=== PATIENT | female | born 1985 | race Caucasian/White ===

== ENCOUNTER 2022-05-03 13:00 | Day surgery (SDC) | payer OTHER ==
[~2022-05-03] VITALS: Ht 170.2 cm; Wt 68.8 kg
== END 2022-05-03 15:45 | disposition home or self-care (01) ==
LOC: ORSCSDS 13:00
PROVIDERS: Orthopaedic Surgery
PROC: 01N54ZZ Release Median Nerve, Percutaneous Endoscopic Approach (ICD-10-PCS; principal; 2022-05-03 14:30)
PROC: 0LN50ZZ Release Right Lower Arm and Wrist Tendon, Open Approach (ICD-10-PCS; principal; 2022-05-03 14:30)
DX: G56.01 Carpal tunnel syndrome, right upper limb (principal); M65.4 Radial styloid tenosynovitis [de Quervain]; F17.210 Nicotine dependence, cigarettes, uncomplicated; B19.20 Unspecified viral hepatitis C without hepatic coma
CPT/HCPCS: J2250; J3010

== ENCOUNTER 2022-07-05 10:25 | Day surgery (SDC) | payer OTHER ==
[~2022-07-05] VITALS: Ht 170.2 cm; Wt 69.8 kg
[2022-07-05] MEDS ORDERED: SULTRIDS PO (10:57)
--- NOTE | 2022-07-05 11:36 | NUR ---
07/05/22 1136 [facility] 1126: TIMEOUT COMPLETED. VERSED GIVEN BY DR VANG AND INJECTION OF 2% LIDOCAINE WITH EPINEPHRINE 1:100,[address] PEDRO.
--- NOTE | 2022-07-05 12:14 | NUR ---
07/05/22 1214 Aruna [place] [facility].TMG IN ROOM JOSE DE JESUS, MED STUDENT, IN ROOM SCRUBBED IN.
== END 2022-07-05 12:26 | disposition home or self-care (01) ==
LOC: ORSCSDS 10:25
PROVIDERS: Orthopaedic Surgery
PROC: 0LN60ZZ Release Left Lower Arm and Wrist Tendon, Open Approach (ICD-10-PCS; principal; 2022-07-05 11:30)
PROC: 01N54ZZ Release Median Nerve, Percutaneous Endoscopic Approach (ICD-10-PCS; 2022-07-05 11:30)
DX: G56.02 Carpal tunnel syndrome, left upper limb (principal); M65.4 Radial styloid tenosynovitis [de Quervain]; F41.9 Anxiety disorder, unspecified; F32.A Depression, unspecified; F17.210 Nicotine dependence, cigarettes, uncomplicated; Z79.899 Other long term (current) drug therapy
CPT/HCPCS: J2250; J7120

== ENCOUNTER → 2022-10-13 | Outpatient (CLI) | payer OTHER ==
[~2022-10-13] MED LIST: SULTRIDS PO
[2022-10-14 09:29] LABS: Candida species (DNA Probe) Negative (NEGATIVE); G. vaginalis (DNA Probe) Positive (NEGATIVE); T. vaginalis (DNA Probe) Positive (NEGATIVE)
== END | disposition home or self-care (01) ==
LOC: LAB 12:37 → LAB SHORT 12:37
PROVIDERS: Obstetrics & Gynecology
DX: N76.0 Acute vaginitis (principal)
CPT/HCPCS: 87480; 87510; 87660

== ENCOUNTER → 2022-10-30 | Outpatient (CLI) | payer OTHER ==
[2022-10-31 10:36] LABS: Candida species (DNA Probe) Negative (NEGATIVE); G. vaginalis (DNA Probe) Positive (NEGATIVE); T. vaginalis (DNA Probe) Negative (NEGATIVE)
== END | disposition home or self-care (01) ==
LOC: LAB 12:15 → LAB SHORT 12:15
PROVIDERS: Advanced Practice Midwife
DX: A59.9 Trichomoniasis, unspecified (principal)
CPT/HCPCS: 87480; 87510; 87660